=== PATIENT | female | born 1990 | race African-American/Black ===

== ENCOUNTER 2017-06-11 21:50 | Inpatient (IN) | payer OTHER ==
[2017-06-12] MEDS: ONDANSETRON 4 MG INJ IV ×4 (01:18→10:29)
[2017-06-12] MEDS: morphine 4 MG/ML VIAL IV ×2 (01:19→06:14)
[2017-06-12] MEDS: SOD CHLORIDE 0.9% 1,000 ML IV (01:19)
[2017-06-12 01:33] LABS: ADD MAN DIFF? NO
[2017-06-12 01:36] LABS: WHITE BLOOD COUNT 14.4 10^3/ul (4.8-10.8)
[2017-06-12 01:36] LABS: ABNORMAL IP MESSAGE 1; BASOPHILS % 0.2 % (0.0-2.0); EOSINOPHILS % 0.1 % (0.0-7.0); HEMATOCRIT 28.2 % (37.0-47.0); HEMOGLOBIN 8.1 g/dl (12.0-16.0); LYMPHOCYTES # 0.8 10^3/ul (0.8-2.9); LYMPHOCYTES % 5.8 % (15.0-51.0); MEAN CORPUSCULAR HEMOGLOBIN 17.2 pg (29.0-33.0); MEAN CORPUSCULAR HGB CONC 28.7 g/dl (32.0-37.0); MEAN PLATELET VOLUME 9.6 fl (7.4-10.4); MONOCYTE # 0.6 10^3/ul (0.3-0.9); NEUTROPHIL # 12.9 10^3/ul (1.6-7.5); NEUTROPHILS % 89.6 % (39.0-77.0); PLATELET COUNT 486 10^3/UL (140-415); RED CELL DISTRIBUTION WIDTH 19.5 % (11.5-14.5)
[2017-06-12 01:44] LABS: POSITIVE DIFF @See below
[2017-06-12 01:58] LABS: ADD UMIC YES; UR ASCORBIC ACID NEGATIVE (NEGATIVE); UR BILIRUBIN (Dip) NEGATIVE (NEGATIVE); UR BLOOD (Dip) NEGATIVE (NEGATIVE); UR CLARITY CLEAR (CLEAR); UR COLOR YELLOW (YELLOW); UR GLUCOSE (Dip) 1+ mg/dL (NEGATIVE); UR KETONES (Dip) 2+ mg/dL (NEGATIVE); UR LEUKOCYTE ESTERASE (Dip) NEGATIVE Leu/ul (NEGATIVE); UR NITRITE (Dip) NEGATIVE (NEGATIVE); UR RBC 0 /HPF (0-5); UR SPECIFIC GRAVITY (Dip) 1.029 (1.003-1.030); UR SQUAMOUS EPITHELIAL CELL FEW /HPF (FEW); UR TOTAL PROTEIN (Dip) 1+ mg/dl (NEGATIVE); UR UROBILINOGEN (Dip) NEGATIVE (NEGATIVE); UR WBC 2 /HPF (0-5)
[2017-06-12 02:00] LABS: ALANINE AMINOTRANSFERASE 23 IU/L (13-69); ALBUMIN 4.9 g/dl (3.3-4.9); ALBUMIN/GLOBULIN RATIO 1.16; ALKALINE PHOSPHATASE 56 IU/L (42-121); ANION GAP 25 (8-16); ASPARTATE AMINO TRANSFERASE 29 IU/L (15-46); BILIRUBIN,INDIRECT 0.7 mg/dl (0-1.1); BILIRUBIN,TOTAL 0.7 mg/dl (0.2-1.3); BLOOD UREA NITROGEN 10 mg/dl (7-20); CALCIUM 9.9 mg/dl (8.4-10.2); CARBON DIOXIDE 19 mmol/L (21-31); CHLORIDE 103 mmol/L (97-110); CREATININE 0.68 mg/dl (0.44-1.00); GLUCOSE 106 mg/dl (70-220); LIPASE 61 U/L (23-300); POTASSIUM 3.9 mmol/L (3.5-5.1); SODIUM 143 mmol/L (135-144); TOTAL PROTEIN 9.1 g/dl (6.1-8.1)
[2017-06-12] MEDS: SOD CHLORIDE 0.9% 100 ML (02:41)
[2017-06-12] MEDS: IOHEXOL 300MG/ML 150 ML BTL (02:41)
[2017-06-12] MEDS: AMPICILLIN/SULB 3 GM/NS (PMX) 100 ML IVPB (06:55)
[2017-06-12] MEDS ORDERED: ONDANSETRON 4 MG INJ IV ×3 (08:30→15:00)
[2017-06-12] MEDS ORDERED: ACETAMINOPHEN 325 MG TAB PO ×2 (08:30→09:30)
[2017-06-12] MEDS ORDERED: NACL 0.9% 3 ML SYG IV (09:30)
[2017-06-12] MEDS: morphine 2 MG INJ IV ×2 (10:29→20:20)
[2017-06-12] MEDS: LACTATED RINGER'S 1,000 ML IV ×3 (10:30→19:30)
[2017-06-12 10:47] LABS: IRON 26 ug/dl (35-150)
[2017-06-12 11:01] LABS: % IRON SATURATION 5 % SAT (22-52); TOTAL IRON BINDING CAPACITY 550 ug/dl (241-421)
[2017-06-12 11:59] LABS: FERRITIN 5.9 ng/ml (6.2-137.0)
[2017-06-12] MEDS ORDERED: FENTAnyl 50 MCG/ML VIAL (14:00)
[2017-06-12] MEDS ORDERED: PIPER-TAZO 3.375 GM IV (PMX) 100 ML (14:21)
[2017-06-12] MEDS ORDERED: MEPERIDINE 25 MG INJ IV (14:30)
[2017-06-12] MEDS ORDERED: FENTAnyl 50 MCG/ML VIAL IV (14:30)
[2017-06-12] MEDS ORDERED: HYDROmorphONE (0.2 MG/ML) 10ML SYG IV ×3 (14:30)
[2017-06-12] MEDS ORDERED: DIPHENHYDRAMINE 50 MG INJ IV (14:30)
[2017-06-12] MEDS ORDERED: METOCLOPRAMIDE 10 MG INJ IV (14:30)
[2017-06-12] MEDS ORDERED: ROPIVACAINE 0.5 % 30 ML VIAL (14:36)
[2017-06-12] MEDS ORDERED: PROPOFOL 20 ML (14:36)
[2017-06-12] MEDS ORDERED: SUCCINYLCHOLINE CHLORIDE 100 MG/5 ML SYG IV (14:36)
[2017-06-12] MEDS ORDERED: ROCURONIUM 50 MG INJ (14:36)
[2017-06-12] MEDS ORDERED: LIDOCAINE 100 MG SYRINGE (14:36)
[2017-06-12] MEDS ORDERED: SUGAMMADEX SODIUM 200 MG/2 ML VIAL IV (14:37)
[2017-06-12] MEDS: BUPIVACAINE 0.25%/EPI (SDV) 30 ML INJ (14:40)
[2017-06-12] MEDS: LIDOCAINE 1% (MPF) 30 ML INJ (14:40)
[2017-06-12] MEDS: FENTAnyl 50 MCG/ML VIAL IV (15:34)
[2017-06-12] MEDS: HYDROCODONE/APAP (5/325) TAB PO (16:58)
[2017-06-12 20:02] LABS: INR 1.18; PROTIME 15.2 Sec (11.9-14.9); PT RATIO 1.2
[2017-06-12] MEDS: PIPER-TAZO 3.375 GM IV (PMX) 100 ML IVPB (21:38)
[2017-06-13] MEDS: morphine 2 MG INJ IV (03:54)
[2017-06-13] MEDS: PANTOPRAZOLE (EC) 40 MG TAB PO (05:23)
[2017-06-13] MEDS: LACTATED RINGER'S 1,000 ML IV ×3 (05:24→21:26)
[2017-06-13] MEDS: PIPER-TAZO 3.375 GM IV (PMX) 100 ML IVPB ×3 (05:25→21:26)
[2017-06-13 06:07] LABS: ADD MAN DIFF? NO
[2017-06-13 06:12] LABS: WHITE BLOOD COUNT 11.6 10^3/ul (4.8-10.8)
[2017-06-13 06:12] LABS: BASOPHIL # 0.1 10^3/ul (0.0-0.1); BASOPHILS % 0.4 % (0.0-2.0); EOSINOPHILS # 0.1 10^3/ul (0.0-0.5); EOSINOPHILS % 0.5 % (0.0-7.0); HEMATOCRIT 25.6 % (37.0-47.0); HEMOGLOBIN 7.5 g/dl (12.0-16.0); LYMPHOCYTES # 1.6 10^3/ul (0.8-2.9); LYMPHOCYTES % 13.7 % (15.0-51.0); MEAN CORPUSCULAR HEMOGLOBIN 17.4 pg (29.0-33.0); MEAN CORPUSCULAR HGB CONC 29.3 g/dl (32.0-37.0); MEAN CORPUSCULAR VOLUME 59.5 fl (82.0-101.0); MEAN PLATELET VOLUME 9.5 fl (7.4-10.4); MONOCYTE # 0.9 10^3/ul (0.3-0.9); MONOCYTES % 7.3 % (0.0-11.0); NEUTROPHILS % 77.8 % (39.0-77.0); PLATELET COUNT 401 10^3/UL (140-415); RED CELL DISTRIBUTION WIDTH 19.6 % (11.5-14.5)
[2017-06-13 06:53] LABS: ANION GAP 15 (8-16); BLOOD UREA NITROGEN 9 mg/dl (7-20); CALCIUM 8.7 mg/dl (8.4-10.2); CARBON DIOXIDE 26 mmol/L (21-31); CHLORIDE 105 mmol/L (97-110); CREATININE 0.77 mg/dl (0.44-1.00); GLUCOSE 89 mg/dl (70-220); POTASSIUM 3.6 mmol/L (3.5-5.1); SODIUM 142 mmol/L (135-144)
[2017-06-13] MEDS: FERROUS SULFATE (EC) 325 MG TAB PO ×2 (09:45→20:00)
[2017-06-13] MEDS: HYDROCODONE/APAP (5/325) TAB PO (19:49)
[2017-06-14] MEDS: LACTATED RINGER'S 1,000 ML IV (01:30)
[2017-06-14] MEDS: PANTOPRAZOLE (EC) 40 MG TAB PO (05:32)
[2017-06-14] MEDS: PIPER-TAZO 3.375 GM IV (PMX) 100 ML IVPB (05:32)
[2017-06-14 06:48] LABS: ADD MAN DIFF? NO
[2017-06-14 06:56] LABS: WHITE BLOOD COUNT 5.9 10^3/ul (4.8-10.8)
[2017-06-14 06:56] LABS: ABNORMAL IP MESSAGE 1; BASOPHIL # 0.1 10^3/ul (0.0-0.1); BASOPHILS % 0.8 % (0.0-2.0); EOSINOPHILS # 0.1 10^3/ul (0.0-0.5); EOSINOPHILS % 2.4 % (0.0-7.0); HEMOGLOBIN 7.3 g/dl (12.0-16.0); LYMPHOCYTES # 2.2 10^3/ul (0.8-2.9); LYMPHOCYTES % 36.7 % (15.0-51.0); MEAN CORPUSCULAR HEMOGLOBIN 17.1 pg (29.0-33.0); MEAN CORPUSCULAR HGB CONC 28.1 g/dl (32.0-37.0); MEAN CORPUSCULAR VOLUME 60.9 fl (82.0-101.0); MEAN PLATELET VOLUME 9.5 fl (7.4-10.4); MONOCYTE # 0.6 10^3/ul (0.3-0.9); MONOCYTES % 9.3 % (0.0-11.0); NEUTROPHILS % 50.6 % (39.0-77.0); PLATELET COUNT 366 10^3/UL (140-415); RED BLOOD COUNT 4.27 10^6/ul (4.20-5.40); RED CELL DISTRIBUTION WIDTH 19.5 % (11.5-14.5)
[2017-06-14 07:06] LABS: POSITIVE DIFF @See below
[2017-06-14] MEDS: FERROUS SULFATE (EC) 325 MG TAB PO (08:29)
== END 2017-06-14 16:40 | disposition home or self-care (01) | DRG 340 ==
LOC: FTE 21:50 → MS2 06-12 08:33
PROC: 0DTJ4ZZ Resection of Appendix, Percutaneous Endoscopic Approach (ICD-10-PCS; principal; 2017-06-12 14:00)
DX: K35.2 Acute appendicitis with generalized peritonitis (principal); F12.90 Cannabis use, unspecified, uncomplicated; R82.4 Acetonuria; K40.20 Bilateral inguinal hernia, without obstruction or gangrene, not specified as recurrent; D50.9 Iron deficiency anemia, unspecified; R11.2 Nausea with vomiting, unspecified
CPT/HCPCS: 36415; 74177; 80048; 80053; 81001; 81025; 82728; 83540; 83690; 85025; 85610; 88304; 96374; 96375; 96376; 99285-25